=== PATIENT | female | born 1935 | race African-American/Black ===

== ENCOUNTER 2016-09-05 04:33 | Inpatient (IN) | payer MEDICARE, BC ==
[2016-08-23 14:39] LABS: WBC (NOT ORDERED) (RFLEX) 0 (0-5)
[2016-08-23 15:38] LABS: BASOPHILS 0.1 %; BASOPHILS ABSOLUTE 0.01 10/3/uL (0.0-0.16); EOSINOPHILS 2.1 %; EOSINOPHILS ABSOLUTE 0.15 10/3/uL (0.0-0.53); HEMOGLOBIN 11.3 g/dL (12.0-16.0); IMMATURE GRANULOCYTES 0.1 %; IMMATURE GRANULOCYTES ABSOLUTE 0.01 10/3/uL (0.0-0.11); LYMPHOCYTES 23.6 %; LYMPHOCYTES ABSOLUTE 1.67 10/3/uL (0.67-4.30); MEAN CORPUS HGB CONC 33.2 g/dL (32.0-36.0); MEAN CORPUSCULAR HEMOGLOB 28.2 pg (26.0-34.0); MEAN PLATELET VOLUME 10.1 fL (9.2-13.0); MONOCYTES 6.8 %; MONOCYTES ABSOLUTE 0.48 10/3/uL (0.21-1.20); NEUTROPHILS 67.3 %; NEUTROPHILS ABSOLUTE 4.76 10/3/uL (2.02-8.40); PLATELET COUNT 279 10/3/uL (150-400); RBC DISTRIBUTION WIDTH 14.8 % (12.0-16.0); RED CELL COUNT 4.01 10/6/uL (4.0-5.6); WHITE BLOOD CELLS 7.1 10/3/uL (4.5-10.5)
[2016-08-23 15:39] LABS: MANUAL DIFF NO %; MEAN CORPUSCULAR VOLUME 84.8 fL (80-100)
[2016-08-23 15:44] LABS: INTERNATIONAL NORMAL RATI 1.2 UNITS (-); PROTIME (NOT ORD) 14.9 SEC (12.0-14.5)
[2016-08-23 15:53] LABS: A/G RATIO 0.9 (0.7-1.9); ALBUMIN 3.3 G/DL (3.5-5.0); CALCIUM, SERUM 8.9 MG/DL (8.5-10.4); CHLORIDE, SERUM 106 MMOL/L (96-112); CO2 (CARBON DIOXIDE) 28 MMOL/L (24-34); CREATININE 1.14 MG/DL (0.55-1.02); GFR AFRICAN AMERICAN 52 ML/MIN (>=60); GFR NON AFRICAN AMERICAN 45 ML/MIN (>=60); GLOBULIN 3.8 G/DL (2.5-4.1); POTASSIUM, SERUM 4.1 MMOL/L (3.5-5.3); SGOT(AST) 10 U/L (5-40); SGPT(ALT) 11 U/L (5-65); SODIUM, SERUM 142 MMOL/L (135-148); TOTAL BILIRUBIN 0.3 MG/DL (0-1.2); TOTAL PROTEIN 7.1 G/DL (6.0-8.5)
[2016-08-23 15:54] LABS: ALKALINE PHOSPHATASE 90 U/L (45-117); BUN (BLOOD UREA NITROGEN) 20 MG/DL (6-23); GLUCOSE, SERUM 146 MG/DL (60-99)
[2016-08-23 16:28] LABS: ASCORBIC ACID (UR NOT ORDER) NEG (NEG); BILIRUBIN, URINE NEGATIVE (NEG); KETONE, URINE NEGATIVE (NEG); LEUKOCYTE ESTERASE(NOT OR NEG (NEG)
--- NOTE | ~2016-09-05 | DS ---
Discharge Summary [facility] [address] [facility] [place]. [address] NAME: JOSEFA ALCANTAR : 35 STATUS : DIS IN PAT#: [id number] AGE: 81 ADM/REG DATE : 09/05/16 MR#: [id number] REPORT SERV DATE: 09/19/16 DICTATED BY: JORI KING DATE: 09/18/16 REPORT STATUS : Draft TRANSCRIBED BY: LIBAN DATE: 09/18/16 Data Collection from hospitalization DISCHARGE DIAGNOSES: 1. Severe right knee degenerative joint disease. 2. Hypertension. 3. Diabetes. 4. Rheumatoid arthritis. 5. Hypercholesterolemia. 6. Peripheral neuropathy. 7. Gastroesophageal reflux disease. CONSULTATIONS: None. PROCEDURES PERFORMED: Right posterior stabilized total knee replacement, cemented, 09/05/2016. PATHOLOGY: Bone and joint, right knee, total knee-degenerative changes. Osteopenia, bone marrow-fatty without hematopoiesis. No crystals identified. MEDICATIONS: Norvasc 5 mg twice a day, Lipitor 40 mg at bedtime, Coreg 6.25 mg twice a day, Colace 100 mg twice a day, Estrace 0.5 mg daily, ferrous sulfate 300 mg with breakfast and supper, NovoLog injection insulin as instructed, Hyzaar one tablet daily, Theragran tablets one tablet with breakfast, Coumadin as instructed, Glucophage 500 mg every evening, Tylenol 325 mg every six hours as needed, Mylanta 30 mL as needed, Dulcolax 15 mg as needed orally or 10 mg per rectum as needed, dextrose 25 mL IV as needed-50 mL IV as needed, glucagon 1 mg IM as needed, glucose three-six tablets as needed, [place] 7.5/325 one to two tablets every four hours as needed for pain, Claritin 10 mg daily as needed, Ativan 1 mg twice a day as needed, milk of magnesia 30 mL as needed, Zofran 4 mg every four hours as needed, Prilosec 20 mg daily as needed, MiraLAX powder one packet twice a day as needed. CONDITION AT DISCHARGE: Stable. DISPOSITION: The patient was discharged to [facility] on an 1800-calorie diabetic diet with activities as instructed. HOSPITAL COURSE: This is an 81-year-old female, who stated that her right knee pain had increased. She had complained of moderate to severe constant knee pain for about five years. The patient has severe right knee degenerative joint disease. Treatment options were discussed and it was elected to proceed with surgical intervention. She was admitted to the hospital at this time for further evaluation and treatment. Upon admission, she was taken to the operating room, where she underwent the above-mentioned procedure. She tolerated this well and there were no complications. Postoperatively, she was evaluated by Occupational and Physical Therapy. On postop day one, she was up sitting in a bedside chair. She had no complaints. ARTEM hose were in place. Level one sliding scale insulin was being provided. Her blood pressure was controlled. She remained on Norvasc, Coreg, and losartan-hydrochlorothiazide. Lipitor was also continued. On postop Discharge Summary [address] [place]. [address] NAME: JOSEFA ALCANTAR : 35 STATUS : DIS IN PAT#: [id number] AGE: 81 ADM/REG DATE : 09/05/16 MR#: [id number] REPORT SERV DATE: 09/19/16 DICTATED BY: JORI KING DATE: 09/18/16 REPORT STATUS : Draft TRANSCRIBED BY: LIBAN DATE: 09/18/16 day two, she was up sitting in a bedside chair. She continued to do well. Discharge planning was performed. Sliding scale insulin was increased to level 2. On 09/08/2016, she was alert and cooperative. She was mobilizing with Physical Therapy. Blood pressure control was improving. Discharge instructions were given. Due to her improved and stable condition, she was discharged to [facility] with the above-stated instructions. Information collected by: Chrissy Tavarez I submit the above information as my discharge summary. TONIA/LIBAN Elizabeth King M.D. / [id number] CC: Severino Blanchard M.D. [facility]
--- NOTE | ~2016-09-05 | OP ---
Record Of Operation [facility] [address] [place]. [address] NAME: JOSEFA ALCANTAR : 35 STATUS : ADM IN PAT#: [id number] AGE: 81 ADM/REG DATE : 09/05/16 MR#: [id number] REPORT SERV DATE: 09/05/16 DICTATED BY: JORI KING DATE: 09/05/16 REPORT STATUS : Draft TRANSCRIBED BY: MODDemetrice DATE: 09/05/16 DATE OF PROCEDURE: 09/05/2016 PREOPERATIVE DIAGNOSIS: Severe right knee degenerative joint disease. POSTOPERATIVE DIAGNOSIS: Severe right knee degenerative joint disease. OPERATION: Right posterior stabilized total knee replacement, cemented. SIDE: Right. SIZE: See chart. ANESTHESIA: See chart. ESTIMATED BLOOD LOSS: About 10 mL. TOURNIQUET TIME: Approximately 1 hour and 10 minutes. COMPLICATIONS: None. SPECIMENS: Articular surfaces. PROCEDURE: The patient was appropriately identified and marked. The operative side agreed with the consent form and it was checked by all members of the surgical team. The patient was taken to the operating room and anesthesia was induced per the anesthesiologist. The patient was carefully transferred to the operating table without incident. The patient received appropriate prophylactic antibiotics and a De La Torre catheter was placed in the standard sterile technique. The patient was then carefully positioned, padded, prepped and draped in the normal sterile fashion. The operative leg had been appropriately identified and checked by all members of the operating team against the consent form and found to be the correct limb. The patient's lower extremity was then exsanguinated with an Nithin wrap and a tourniquet was inflated to 350 mm/Hg. Sharp dissection was carried out through a straight midline longitudinal incision and electrocautery through the fat. Sharp quad splitting approach was carried out between about the medial 10 percent of the tendon and the lateral 90 percent of the tendon and down around the medial aspect of the patella and then 1 cm medial to the tibial tubercle. The patella was carefully everted and the posterior fat pad was excised and gentle MCL elevation was carried out off the proximal medial tibia subperiosteally. IM guide was placed in the distal femur after using the appropriate drill. The distal femoral cutting guide was held with 2 pins and the distal cut made. Meniscal fragments and the ACL and the PCL were excised with electrocautery, carefully staying anterior to the posterior fat pad. The proximal tibial alignment guide was set appropriately and the proximal tibial cut made. Spacer block verified full extension with excellent mediolateral balance. Sizing guide was used to place 2 drill holes in the distal femur and the four-in-one cutting block was then placed, impacted and checked Record Of Operation [facility] [address] [place]. [address] NAME: JOSEFA ALCANTAR : 35 STATUS : ADM IN PAT#: [id number] AGE: 81 ADM/REG DATE : 09/05/16 MR#: [id number] REPORT SERV DATE: 09/05/16 DICTATED BY: JORI KING DATE: 09/05/16 REPORT STATUS : Draft TRANSCRIBED BY: MODL DATE: 09/05/16 to be sure it would not notch with an mahesh wing and it was held with 2 pins. The anterior cut, posterior cut, anterior chamfer and posterior chamfer cuts were made. The pins were removed and the block was removed. A posterior release was carried out with a curved 3/4 inch osteotome staying right on the bone posteriorly. The box-cut guide was then placed, impacted and held with 2 pins and a reciprocating saw was used to cut out the box. With the trial components in place, there was excellent medial/lateral balance. The patella was then measured with a caliper, cut first with an oscillating saw and then reamed with a patella reamer. With the trial patella in place, there was excellent patellar tracking. Rotation was marked on the tibia and the tibia prepared with a drill and stamp chisel. All surfaces were then copiously irrigated with pulsatile lavage, carefully dried and then vacuum-mixed cement was pressurized with a cement gun in a doughy phase. The tibial component was placed, impacted and excess cement was removed. The cement was then pressurized in the femur and placed on the posterior runners of the femoral component, which was placed, impacted and excess cement removed and the knee was brought out into extension on a trial spacer. The cement was then pressurized in the patella. Patellar component was then placed, clamped and excess cement was removed. Once all cement was hardened, the knee was taken through range of motion. Further extruded cement was removed with a small osteotome. Then based on the trial inserts, we decided on the actual insert, which was placed in the standard fashion and held with a locking mechanism. The knee was then copiously irrigated and then closed in a layered fashion over a medium Hemovac drain superolaterally with interrupted #1 in the deep fascia, 2-0 subcutaneous and elise in the skin. The wounds were dressed sterilely and the tourniquet was deflated. The patient was then awakened and taken to the postanesthesia care unit without incident. All counts were correct at the end of the case. RAHEL/LIBAN Elizabeth Knig M.D. / [id number] CC: Elizabeth King M.D.
[~2016-09-05 04:33] MED LIST: ACET500CAP PO; ATV1 PO; CENTRUM SILVER PO; CLARIT10 PO; COREG6 PO; ESTRACE0.5 MG PO; GLUCPH PO; GYNODIOL0.5 MG PO; HCTZ50B PO; HYDROCHLOROT25 MG PO; HYDROCHLOROT50 MG PO; HYZAAR 100/25 T1 TAB PO; HYZAAR 50/12.51 TAB PO; JANUVIA100 MG PO; LIPITOR40 PO; MOBIC15 MG PO; MOBIC7.5 PO; MULTIVITAMI1 PO; NAP500 PO; NEUR300 PO; NEXIUM40 PO; NORV5 PO; PREM45 PO; PRILO PO; T PO; ULTRAM50 PO; VITAMIN D1000 UNI1 PO; VITAMIN D400 UNI1 PO; VITC500 PO; ZOCOR20 PO
[2016-09-06 05:19] LABS: HEMOGLOBIN 10.2 g/dL (12.0-16.0)
[2016-09-06 05:21] LABS: HEMATOCRIT 30.3 % (36.0-48.0)
[2016-09-06 05:22] LABS: INTERNATIONAL NORMAL RATI 1.2 UNITS (-); PROTIME (NOT ORD) 14.8 SEC (12.0-14.5)
[2016-09-06 05:30] LABS: BUN (BLOOD UREA NITROGEN) 21 MG/DL (6-23); CALCIUM, SERUM 8.3 MG/DL (8.5-10.4); CHLORIDE, SERUM 100 MMOL/L (96-112); CO2 (CARBON DIOXIDE) 24 MMOL/L (24-34); CREATININE 1.04 MG/DL (0.55-1.02); GFR AFRICAN AMERICAN 58 ML/MIN (>=60); GFR NON AFRICAN AMERICAN 50 ML/MIN (>=60); POTASSIUM, SERUM 4.2 MMOL/L (3.5-5.3)
[2016-09-06 05:51] LABS: GLUCOSE, SERUM 204 MG/DL (60-99); SODIUM, SERUM 135 MMOL/L (135-148)
[2016-09-07 07:15] LABS: INTERNATIONAL NORMAL RATI 1.9 UNITS (-); PROTIME (NOT ORD) 21.5 SEC (12.0-14.5)
[2016-09-07 07:16] LABS: HEMATOCRIT 24.2 % (36.0-48.0)
[2016-09-07 07:27] LABS: CALCIUM, SERUM 8.5 MG/DL (8.5-10.4); CHLORIDE, SERUM 103 MMOL/L (96-112); CO2 (CARBON DIOXIDE) 28 MMOL/L (24-34); GFR AFRICAN AMERICAN 61 ML/MIN (>=60); GFR NON AFRICAN AMERICAN 53 ML/MIN (>=60); GLUCOSE, SERUM 240 MG/DL (60-99); POTASSIUM, SERUM 4.4 MMOL/L (3.5-5.3); SODIUM, SERUM 136 MMOL/L (135-148)
[2016-09-07 07:29] LABS: BUN (BLOOD UREA NITROGEN) 28 MG/DL (6-23)
[2016-09-08 05:14] LABS: HEMATOCRIT 23.6 % (36.0-48.0)
[2016-09-08 05:23] LABS: INTERNATIONAL NORMAL RATI 2.5 UNITS (-)
[2016-09-08 05:28] LABS: PROTIME (NOT ORD) 26.7 SEC (12.0-14.5)
== END 2016-09-08 15:10 | DRG 470 ==
LOC: SDC/OF 04:33 → PACU 09:35 → 3SO 10:40
PROVIDERS: Specialist
PROC: 3E0T3CZ (ICD-10-PCS; 2016-09-05)
PROC: 0SRC0J9 Replacement of Right Knee Joint with Synthetic Substitute, Cemented, Open Approach (ICD-10-PCS; principal; 2016-09-05 06:30)
DX: M17.11 Unilateral primary osteoarthritis, right knee (principal); I42.9 Cardiomyopathy, unspecified; E11.9 Type 2 diabetes mellitus without complications; D62 Acute posthemorrhagic anemia; I10 Essential (primary) hypertension; K21.9 Gastro-esophageal reflux disease without esophagitis; E78.5 Hyperlipidemia, unspecified
CPT/HCPCS: 71020; 80048; 80053; 81001; 82962; 85014; 85018; 85025; 85610; 87641; 88305; 88311; 93005; 97110-GP; 97116-GP; 97161-GP; 97165-GO; 97530-GP; A9270-GY; C1776; G8978-CM-GP; G8979-CJ-GP; G8987-CK-GO; G8988-CJ-GO; J0690; J1030; J1885; J2250; J2274; J2405; J2710; J2795; J3010